=== PATIENT | female | born 1995 | race Hispanic/Latino ===

== ENCOUNTER 2017-04-30 15:05 | Emergency (ER) | payer SELFPAY ==
[2017-04-30 15:15] VITALS: BP 154/81; RESP 16; TEMP 99.1; O2SAT 100
[2017-04-30] MEDS ORDERED: Sodium Chloride 0.9% 1,000 ML IV STA (15:30)
--- NOTE | 2017-04-30 15:40 | ED PDOC ---
HPI: Chest Pain Time Seen by Provider: 04/30/17 15:16 Chief Complaint (Nursing): Chest Pain Chief Complaint (Provider): Chest Pain History Per: Patient History/Exam Limitations: no limitations Onset/Duration Of Symptoms: Hrs (this afternoon) Current Symptoms Are (Timing): Still Present Quality: Sharp Associated Symptoms: Other (mild SOB) Exacerbating Factors: Movement, Other (laying flat) Additional Complaint(s): Mayi Garcia is a 21 year old female, with no past medical history, who presents to the emergency department complaining of an intermittent sharp left sided chest pain associated with a mild shortness of breath onset since this afternoon. Patient states the pain is localized underneath the breast and worst when she lays flat or with movement. She reports similar symptoms in the past but states the pain would only last a few minutes, last similar episode was 1 month ago. Patient hasn't taken any medication for symptoms, and denies any recent travels. Patient took Tylenol but with no relief of symptoms. She denies any fever, chills, cough, leg swelling, calf pain, dysuria, rash, nausea or vomit. No further medical complaints. PMD: None provided. Past Medical History Reviewed: Historical Data, Nursing Documentation, Vital Signs Vital Signs: Last Vital Signs Temp 99.1 F 04/30/17 15:12 Pulse 93 H 04/30/17 17:46 Resp 16 04/30/17 15:12 BP 154/81 H 04/30/17 15:12 Pulse Ox 100 04/30/17 17:46 - Medical History PMH: No Chronic Diseases - Surgical History Surgical History: No Surg Hx - Family History Family History: States: No Known Family Hx Other Family History: Breast CA - Social History Current smoker - smoking cessation education provided: No Alcohol: Social Drugs: Denies - Home Medications Home Medications: Ambulatory Orders Medication Instructions Recorded Naproxen [Naprosyn] 500 mg PO BID PRN #20 tablet 04/30/17 - Allergies Allergies/Adverse Reactions: Allergies Allergy/AdvReac Type Severity Reaction Status Date / Time Pertussis Vaccines Allergy URTICARIA Verified 04/30/17 15:12 RESHMA Risk Score for UA/NSTEMI - RESHMA Risk Score Age > 64: NO 3 or more CAD Risk Factors: NO Known CAD (Stenosis greater than 50%): NO Aspirin use in past 7 days: NO Severe Angina: NO EKG ST changes greater than 0.5mm: NO Positive Cardiac Marker: NO RESHMA Score: 0 Risk %: 5% Curb-65 Severity Score - CURB-65 Severity Score Confusion: No Bun >19mg/dl (>7mmol/L): No Respiratory Rate greater than/equal to 30: No Systolic BP <90 or Diastolic BP less than/equal 60mmHg: No Age >64: No Curb-65 Score: 0 Percentage 30-day mortality: 0.6% Wells Criteria for PE - Wells Criteria for Pulmonary Embolism Clinical Signs and Symptoms of DVT: No P.E is #1 Diagnosis, or Equally Likely: No Heart Rate >100: No Immobilization at least 3 days;Surgery previous 4 weeks: No Previous, objectively diagnosed PE or DVT: No Hemoptysis: No Malignancy w/treatment within 6 months, or palliative: No Total Score: 0 Review of Systems ROS Statement: Except As Marked, All Systems Reviewed And Found Negative Constitutional: Negative for: Fever, Chills Cardiovascular: Positive for: Chest Pain (left sided sharp) Respiratory: Positive for: Shortness of Breath (mild). Negative for: Cough Gastrointestinal: Negative for: Nausea, Vomiting Genitourinary Female: Negative for: Dysuria Skin: Negative for: Rash Physical Exam - Reviewed Nursing Documentation Reviewed: Yes Vital Signs Reviewed: Yes - Physical Exam Appears: Positive for: Non-toxic, Uncomfortable (mild moderate discomfort from pain) Head Exam: Positive for: ATRAUMATIC, NORMAL INSPECTION, NORMOCEPHALIC Skin: Positive for: Normal Color, Warm, Dry. Negative for: Rash Eye Exam: Positive for: Normal appearance Neck: Positive for: Painless ROM, Supple Cardiovascular/Chest: Positive for: Regular Rate, Rhythm, Chest Non Tender. Negative for: Murmur Respiratory: Positive for: Normal Breath Sounds (clear b/l). Negative for: Respiratory Distress Gastrointestinal/Abdominal: Positive for: Normal Exam, Soft. Negative for: Tenderness Back: Negative for: L CVA Tenderness, R CVA Tenderness, Vertebral Tenderness Extremity: Positive for: Normal ROM. Negative for: Pedal Edema, Deformity, Swelling Neurologic/Psych: Positive for: Alert, Oriented (x3) - Laboratory Results Result Diagrams: 04/30/17 16:17 04/30/17 16:17 - ECG ECG: Positive for: Viewed By Me ECG Rhythm: Positive for: Sinus Rhythm (normal) Rate: 93 O2 Sat by Pulse Oximetry: 100 (RA) Pulse Ox Interpretation: Normal - Radiology X-Ray: Viewed By Me, Read By Radiologist X-Ray Interpretation: No Acute Disease - Progress Re-evaluation Time: 17:30 Condition: Improving,but remains with symptoms Medical Decision Making Medical Decision Making: Initial Impression: Left sided lower chest pain. Differential includes but not limited to: musculoskeletal pain, pleuritic pain, pneumothorax, PE Initial Plan: --EKG --CK-MB --Comp Metabolic Panel --Creatine Phosphokinase --Troponin I --Urine --CBC w/ differential --Chest two views (PA/LAT) [RAD] --D Dimer --Erythrocyte sedimentation rate --Toradol 30 mg IV --Sodium Chloride 1,000 ml IV 1,000 mls/hr --reevaluation Scribe Attestation: Documented by Rene Puri, acting as a scribe for Nadege Wilson MD Provider Scribe Attestation: All medical record entries made by the Scribe were at my direction and personally dictated by me. I have reviewed the chart and agree that the record accurately reflects my personal performance of the history, physical exam, medical decision making, and the department course for this patient. I have also personally directed, reviewed, and agree with the discharge instructions and disposition. Disposition - Clinical Impression Clinical Impression: Chest wall pain - Patient ED Disposition Is Patient to be Admitted: No Doctor Will See Patient In The: Office Counseled Patient/Family Regarding: Diagnosis, Need For Followup, Rx Given - Disposition Referrals: [facility] [Outside] Ric Yuan MD [Staff Provider] - Disposition Time: 17:25 Condition: IMPROVED Prescriptions: Naproxen [Naprosyn] 500 mg PO BID PRN #20 tablet PRN Reason: Pain, Moderate (4-7) Instructions: Chest Wall Pain (ED) Forms: [facility] ([place]), [facility] ED School/Work Excuse - POA Present On Arrival: None
[2017-04-30 15:49] VITALS: PULSE 93
[2017-04-30 16:21] LABS: BASO # 0.1 K/uL (0.0-0.2); BASO % 0.6 % (0.0-2.0); EOS % 0.3 % (0.0-4.0); HEMOGLOBIN 13.7 g/dL (12.0-16.0); LYMPH % 18.6 % (20.0-40.0); MEAN CELL VOLUME 88.8 fl (81.0-99.0); MEAN CORPUSCULAR HEMOGLOBIN 29.3 pg (27.0-31.0); MEAN PLATELET VOLUME 8.9 fl (7.2-11.7); MONO # 0.4 K/uL (0.0-0.8); MONO % 3.7 % (0.0-10.0); NEUT # 8.1 K/uL (1.8-7.0); NEUT % 76.8 % (50.0-75.0); RBC 4.68 Mil/uL (3.80-5.20); RED CELL DISTRIBUTION WIDTH 13.2 % (11.5-14.5); WHITE BLOOD COUNT 10.6 K/uL (4.8-10.8)
[2017-04-30 16:35] LABS: ALB/GLOB RATIO 1.5 (1.0-2.1); ALBUMIN 4.7 g/dL (3.5-5.0); ALT/SGPT 26 U/L (9-52); AST/SGOT 26 U/L (14-36); BLOOD UREA NITROGEN 9 mg/dl (7-17); CALCIUM 9.9 mg/dL (8.4-10.2); GFR AFRICAN-AMERICAN > 60; GFR NON-AFRICAN AMERICAN > 60
[2017-04-30 16:46] LABS: CK-MB 0.58 ng/mL (0.0-3.38)
--- NOTE | 2017-04-30 17:38 | RAD ---
HISTORY: left lower chest pain COMPARISON: No prior. TECHNIQUE: Chest PA and lateral FINDINGS: LUNGS: No active pulmonary disease. PLEURA: No significant pleural effusion identified. No pneumothorax apparent. CARDIOVASCULAR: Normal. OSSEOUS STRUCTURES: No significant abnormalities. VISUALIZED UPPER ABDOMEN: Normal. OTHER FINDINGS: None. IMPRESSION: No active disease.
--- NOTE | 2017-05-01 19:37 | CARD ---
APPROVED REPORT EKG Measurement Heart [id number] <Conclusion> Normal sinus rhythm Normal ECG
== END 2017-04-30 19:00 | disposition home or self-care (01) ==
LOC: H.ER 15:05
DX: R07.89 Other chest pain (principal)
CPT/HCPCS: 71046; 80053; 81025; 82550; 82553; 84484; 85025; 85378; 85651; 93005; 99282; J1885; J7040